=== PATIENT | male | born 1985 | race Hispanic/Latino ===

== ENCOUNTER 2017-04-08 22:23 | Emergency (ER) | payer SELFPAY ==
[2017-04-08 23:50] VITALS: BP 145/82; PULSE 65; RESP 16; TEMP 98.7; O2SAT 100
[2017-04-09] MEDS ORDERED: Oxycodone/Acetaminophen 5/325 mg Tab ONE (01:17)
[2017-04-09] MEDS ORDERED: Silver Sulfadiazine 1% CREAM (50 gm) ONE (01:18)
[2017-04-09] MEDS ORDERED: Silver Sulfadiazine 1% Cream (20 gm) TOP STA (01:26)
[2017-04-09] MEDS ORDERED: Oxycodone/Acetaminophen 5/325 mg Tab PO STA (01:27)
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
== END 2017-04-09 01:44 | disposition home or self-care (01) ==
LOC: H.ER 22:23
DX: T23.202A Burn of second degree of left hand, unspecified site, initial encounter (principal)